=== PATIENT | male | born 1980 | race African-American/Black ===

== ENCOUNTER 2018-06-29 10:48 | Emergency (ER) | payer OTHER ==
[2018-06-29 11:13] VITALS: BMI 26.6
[2018-06-29] MEDS ORDERED: ACETAMINOPHEN 1000 MG/100 ML VIAL (NON FORMULARY) IVPB ONE (11:19)
[2018-06-29] MEDS ORDERED: SODIUM CHLORIDE 1,000 ML IV STA (11:19)
[2018-06-29] MEDS ORDERED: METOCLOPRAMIDE HCL INJECTION 10 MG/2 ML VIAL IVPUSH ONE (11:19)
[2018-06-29] MEDS ORDERED: ACETAMINOPHEN INJECTION 100 ML IVPB ONE (11:25)
[2018-06-29] MEDS ORDERED: METOCLOPRAMIDE HCL INJECTION 10 MG/2 ML VIAL ONE (11:25)
--- NOTE | 2018-06-29 11:27 | PDOC ---
History of Present Illness - History of Present Illness Initial Comments: 06/29/18 12:11 Patient is a 38 year old male with no significant past medical history who presents to the ED with complaints of syncope that occured this morning. Patient reports sitting in the break room at his workplace when he began to feel unwell before losing consciousness. He reports waking up on the floor to a co worker throwing water onto his face. Patient reports experiencing associated nausea, and head pain that he states is a intermittent tight head pain that began x2 days ago. He reports experiencing decreased PO intake for the last 2 days due to having no time. Patient states his son is currently sick at home and has been vomiting. Denies chest pain, sob. Denies nausea, vomiting. Denies fevers, chills. Denies diarrhea, constipation. Denies dysuria, hematuria. Denies contact with sick individuals, out of state travelling. Denies any other symptoms. Allergies: None Social history: lives with two sons. No smoking. No illicit drugs. Social alcohol use. Surgical history: None PMD:Dr. Little <Sagar Hanley - Last Filed: 06/29/18 12:11> - General History Source: Patient Exam Limitations: No Limitations <Mercy Posey - Last Filed: 06/29/18 15:42> - General Chief Complaint: Syncope/Near Syncope Stated Complaint: Syncope/Near Syncope Time Seen by Provider: 06/29/18 10:57 Past History <Sagar Hanley - Last Filed: 06/29/18 12:11> - Past Medical History COPD: No Other medical history: denies - Suicide/Smoking/Psychosocial Hx Smoking History: Never smoked Information on smoking cessation initiated: No Hx Alcohol Use: Yes (2 beer daily) Drug/Substance Use Hx: No (denies) <Mercy Posey - Last Filed: 06/29/18 15:42> - Past Medical History Allergies/Adverse Reactions: Allergies Allergy/AdvReac Type Severity Reaction Status Date / Time No Known Allergies Allergy Unverified 06/29/18 11:13 Home Medications: Ambulatory Orders Amoxicillin/Potassium Clav [Augmentin 875-125 Tablet] 1 each PO BID #14 tablet 06/29/18 Guaifenesin [Mucinex -] 600 mg PO BID #14 tablet.er 06/29/18 Pseudoephedrine HCl [Sudafed] 60 mg PO Q6H PRN #30 tablet 06/29/18 Review of Systems - Review of Systems Able to Perform ROS?: Yes Comments:: 06/29/18 12:11 GENERAL/CONSTITUTIONAL: No: fever, chills, weakness, loss of appetite. HEAD, EYES, EARS, NOSE AND THROAT: +Head pain. No: change in vision, ear pain, discharge, sore throat, throat swelling. CARDIOVASCULAR: No: chest pain, lightheadedness, palpitations, syncope RESPIRATORY: No: cough, shortness of breath, wheezing, hemoptysis, stridor. GASTROINTESTINAL: No: nausea, vomiting, abdominal cramping, diarrhea, rectal bleeding, constipation. GENITOURINARY: No: dysuria, hematuria, frequency, urgency, flank pain. MUSCULOSKELETAL: No: back pain, neck pain, joint pain, muscle swelling or pain SKIN: No: lesions, pallor, rash or easy bruising. NEUROLOGIC: No: headache, vertigo, paresthesias, weakness ENDOCRINE: No: unexplained weight gain or loss HEMATOLOGIC/LYMPHATIC: No: anemia, easy bleeding, swelling nodes <Sagar Hanley - Last Filed: 06/29/18 12:11> *Physical Exam - Vital Signs Last Vital Signs Temp Pulse Resp BP Pulse Ox 97.9 F 78 18 129/78 98 06/29/18 11:02 06/29/18 12:04 06/29/18 12:04 06/29/18 12:04 06/29/18 12:04 - Physical Exam Comments: 06/29/18 12:11 GENERAL: The patient is in no acute distress. No external signs of trauma. HEAD: Normal with no signs of trauma. EYES: PERRLA, EOMI, sclera anicteric, conjunctiva clear. ENT: +Dry mucous membranes. Ears normal, nares patent, oropharynx clear without exudates. NECK: Normal range of motion, supple without lymphadenopathy, JVD, or masses. LUNGS: Breath sounds equal, clear to auscultation bilaterally. No wheezes, and no crackles. HEART:Regular rate and rhythm, normal S1 and S2 without murmur, rub or gallop. ABDOMEN: Soft, nontender, normoactive bowel sounds. No guarding, no rebound. EXTREMITIES: Normal range of motion, no edema. No clubbing or cyanosis. No erythema, or tenderness. NEUROLOGICAL: Cranial nerves II through XII grossly intact. Normal speech. No focal neurological deficits. MUSCULOSKELETAL: Back nontender to palpation, no CVA tenderness SKIN: Warm, Dry, normal turgor, no rashes or lesions noted. <Sagar Hanley - Last Filed: 06/29/18 12:11> - Vital Signs Last Vital Signs Temp Pulse Resp BP Pulse Ox 97.9 F 95 H 18 131/60 98 06/29/18 11:02 06/29/18 11:02 06/29/18 11:02 06/29/18 11:02 06/29/18 11:02 <Mercy Posey - Last Filed: 06/29/18 15:42> ED Treatment Course - LABORATORY CBC & Chemistry Diagram: 06/29/18 11:40 06/29/18 11:40 - ADDITIONAL ORDERS Additional order review: 06/29/18 11:40 RBC 4.60 MCV 89.5 MCHC 33.9 RDW 12.9 MPV 8.1 Neutrophils % 88.3 H Lymphocytes % 4.9 L Monocytes % 6.3 Eosinophils % 0.1 Basophils % 0.4 - Medications Given in the ED: ED Medications Discontinued Medications Generic Name Dose Route Start Last Admin Trade Name Gaboq PRN Reason Stop Dose Admin Acetaminophen 1,000 mg 06/29/18 11:19 06/29/18 11:48 Ofirmev Injection - IVPB 06/29/18 11:20 1,000 mg ONCE ONE Administration Metoclopramide HCl 10 mg 06/29/18 11:19 06/29/18 11:54 Reglan Injection - IVPUSH 06/29/18 11:20 10 mg ONCE ONE Administration <Sagar Hanley - Last Filed: 06/29/18 12:11> - LABORATORY CBC & Chemistry Diagram: 06/29/18 11:40 06/29/18 11:40 <Mercy Posey - Last Filed: 06/29/18 15:42> Medical Decision Making - Medical Decision Making 06/29/18 11:18 38 yo M presenting to the ER with a complaint of syncopal episode Pt state he has not felt well for the past 3 - 4 days He has had a headache which is described as intermittent, located through out the head, gradual onset Pt has not taken any medication for his pain because he does not want to take any medications No fevers or chills Pt has several emotional stressors - is a single father and has limited support While at work in the break room, pt had a syncopal episode, falling off of his chair No memory of striking the ground He next recalls someone pouring water all over him No prior episodes like this No recent travel Twelve-lead EKG was performed and reviewed by me. There is normal sinus rhythm with a normal rate. The axis is normal. The intervals are normal. There are no ST or T wave abnormalities. Impression: Normal twelve-lead EKG 06/29/18 11:20 Will do labs, CT, CXR Will give IVF Pt will permit me giving medications for pain Will re assess Pt has stated he will not be able to stay in the hospital because he has to take care of his children 06/29/18 12:47 Laboratory Tests 06/29/18 06/29/18 11:40 11:40 WBC 11.9 H Hgb 13.9 Hct 41.1 Plt Count 197 Sodium 136 Potassium 4.3 Chloride 101 Carbon Dioxide 27 BUN 14 Creatinine 1.3 Random Glucose 104 Creatine Kinase 110 Troponin I < 0.02 06/29/18 13:20 CXR with mediastinal crowding, bibasilar atalectasis with effusions 06/29/18 15:19 Repeat Xray with right LL atalectasis Given elevated WBC, and pt stating that he felt ill, Will plan to treat with ABX Pt also has evidence of chronic sinusitis, will give Augmentin and Sudafed Pt at this time is refusing to stay in the hospital because of his other obligations Clinical Impression: Syncopal episode, initial presentation Possible Sinusitis, initial presentation ? pneumonia, initial presentation <Mercy Posey - Last Filed: 06/29/18 15:42> *DC/Admit/Observation/Transfer - Attestations Scribe Attestion: 06/29/18 12:12 Documentation prepared by Sagar Hanley, acting as medical laboratory technicians for Mercy Posey MD. <Sagar Hanley - Last Filed: 06/29/18 12:11> - Discharge Dispostion Decision to Admit order: No <Mercy Posey - Last Filed: 06/29/18 15:42> Diagnosis at time of Disposition: Syncope and collapse Sinusitis Qualifiers: Sinusitis location: unspecified location Chronicity: chronic Qualified Code(s) : J32.9 - Chronic sinusitis, unspecified - Discharge Dispostion Disposition: HOME Condition at time of disposition: Stable - Referrals Referrals: Andrés Little [Primary Care Provider] - Freddie Mercedes MD [Staff Physician] - - Patient Instructions Printed Discharge Instructions: DI for Syncope in Adults (Fainting), DI for Sinusitis, DI for Pneumonia -- Adult Additional Instructions: Thank you for coming in to the ER today I am concerned about this syncopal episode that you had today Your labs are good and your CT scan shows no acute problems in the brain These tests are good but are limited I would like you to make sure that you are evaluated by a primary care physician Please take medications as prescribed to treat the sinusitis and the abnormal chest x ray findings Please feel free to return to the ER for any other concern or complaint, if you notice any worsening of your headache OR if you have another fainting spell If you do not have a primary car physician, I have given you a referral - Post Discharge Activity Forms/Work/School Notes: Back to Work
[2018-06-29 11:53] LABS: BASO % 0.4 % (0-2.0); EOS % 0.1 % (0-4.5); HEMATOCRIT 41.1 % (35.4-49); HEMOGLOBIN 13.9 GM/dL (11.7-16.9); LYMPH % 4.9 % (8-40); MCH 30.3 pg (25.7-33.7); MCHC 33.9 g/dl (32.0-35.9); MEAN CELL VOLUME 89.5 fl (80-96); MEAN PLT VOLUME 8.1 fl (7.5-11.1); MONO % 6.3 % (3.8-10.2); NEUT % 88.3 % (42.8-82.8); PLATELET COUNT 197 K/MM3 (134-434); RDW 12.9 % (11.9-15.9); WHITE BLOOD COUNT 11.9 K/mm3 (4.0-10.0)
[2018-06-29 12:23] LABS: ALK PHOS 101 U/L (45-117); ANION GAP 7 MMOL/L (8-16); BILIRUBIN,TOTAL 0.6 mg/dL (0.2-1); BLOOD UREA NITROGEN 14 mg/dL (7-18); CALCIUM 8.7 mg/dL (8.5-10.1); CHLORIDE 101 mmol/L (98-107); CO2 27 mmol/L (21-32); CREATININE 1.3 mg/dL (0.55-1.3); GLUCOSE,RANDOM 104 mg/dL (74-106); POTASSIUM 4.3 mmol/L (3.5-5.1); SGOT/AST 15 U/L (15-37); SGPT/ALT 25 U/L (13-61); SODIUM 136 mmol/L (136-145); TOT PROT 7.5 g/dl (6.4-8.2)
[2018-06-29 15:26] VITALS: BP 117/73; PULSE 89; TEMP 98.8
== END 2018-06-29 16:10 | disposition home or self-care (01) ==
LOC: JER 10:48
PROC: 3E033NZ Introduction of Analgesics, Hypnotics, Sedatives into Peripheral Vein, Percutaneous Approach (ICD-10-PCS; principal; 2018-06-29)
PROC: 3E033GC Introduction of Other Therapeutic Substance into Peripheral Vein, Percutaneous Approach (ICD-10-PCS; 2018-06-29)
PROC: 3E0337Z Introduction of Electrolytic and Water Balance Substance into Peripheral Vein, Percutaneous Approach (ICD-10-PCS; 2018-06-29)
DX: R55 Syncope and collapse (principal); J32.9 Chronic sinusitis, unspecified
CPT/HCPCS: 36415; 70450-TC; 71045-TC-FY; 71046-TC-FY; 80053; 82550; 84484; 85025; 99285-25; J0131; J7030